=== PATIENT | female | born 1985 | race Caucasian/White ===

== ENCOUNTER 2020-09-27 15:02 | Emergency (ER) | payer SELFPAY ==
[~2020-09-27] VITALS: Ht 167.6 cm; Wt 58.2 kg
[2020-09-27] MEDS ORDERED: IV NORMAL SALINE 1000ML BAG 1,000 ML IV ONE (15:30)
[2020-09-27] MEDS ORDERED: fentaNYL PF VIAL 100 MCG/2 ML VIAL IVP ONE (15:30)
[2020-09-27] MEDS ORDERED: HYDROmorphone 2 MG/ML VIAL IVP ONE ×4 (15:45→19:00)
[2020-09-27 16:10] LABS: BASO # 0.1 x10^3/uL (0.0-0.2); BASO % 1 % (0-3); EOS # 0.1 x10^3/uL (0.0-0.7); EOS % 1 % (0-3); HEMATOCRIT 36.7 % (36.0-47.0); HEMOGLOBIN 12.7 g/dL (12.0-15.5); LYMPH # 1.1 x10^3/uL (1.0-4.8); LYMPH % 11 % (24-48); MEAN CORPUSCULAR HEMOGLOBIN 32 pg (25-35); MEAN CORPUSCULAR HGB CONC 35 g/dL (31-37); MEAN CORPUSCULAR VOLUME 91 fL (79-100); MONO # 0.6 x10^3/uL (0.0-1.1); MONO % 6 % (0-9); NEUT # 8.5 x10^3/uL (1.8-7.7); NEUT % 83 % (31-73); PLATELET COUNT 190 x10^3/uL (140-400); RED BLOOD COUNT 4.03 x10^6/uL (3.50-5.40); WHITE BLOOD COUNT 10.3 x10^3/uL (4.0-11.0)
[2020-09-27 16:18] LABS: CALCIUM 8.4 mg/dL (8.5-10.1); CREATININE 0.9 mg/dL (0.6-1.0); GFR 70.8; POTASSIUM 3.8 mmol/L (3.5-5.1)
[2020-09-27 16:20] LABS: PREG TEST PT QUAL NEGATIVE (NEG)
[2020-09-27 16:24] LABS: ALBUMIN 3.6 g/dL (3.4-5.0); ALBUMIN/GLOBULIN RATIO 1.2 (1.0-1.7); TOTAL BILIRUBIN 0.4 mg/dL (0.2-1.0); TOTAL PROTEIN 6.5 g/dL (6.4-8.2)
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
[2020-09-27 19:25] VITALS: BP 134/74
== END 2020-09-27 19:37 | disposition short-term general hospital (02) ==
LOC: ER 15:02
DX: S02.2XXB Fracture of nasal bones, initial encounter for open fracture (principal); S60.221A Contusion of right hand, initial encounter; R60.0 Localized edema; V89.2XXA Person injured in unspecified motor-vehicle accident, traffic, initial encounter; Y93.89 Activity, other specified; Y92.413 State road as the place of occurrence of the external cause; Y99.8 Other external cause status
CPT/HCPCS: 12011; 36415; 70450; 70486; 72125; 73130; 80053; 83735; 84703; 85025; 96365; 96375; 96376; 99285; J0690; J1170; J3010; J7030